=== PATIENT | female | born 1950 ===

== ENCOUNTER 2021-07-23 05:30 | Day surgery (SDC) | payer OTHER ==
[~2021-07-23 05:30] MED LIST: CRESTOR5 MG PO; LEVOTHYROXINE25 MCG PO; OMEGA PO; ZOLOFT25 MG PO
[2021-07-23] MEDS ORDERED: IBU600 MG PO (11:16)
== END 2021-07-23 17:45 | disposition home or self-care (01) ==
LOC: CIR.AMB 05:30
PROVIDERS: ATTEND Obstetrics & Gynecology Gynecology
DX: N81.12 Cystocele, lateral (principal); I95.9 Hypotension, unspecified; E03.9 Hypothyroidism, unspecified; K21.9 Gastro-esophageal reflux disease without esophagitis; E78.5 Hyperlipidemia, unspecified; F41.9 Anxiety disorder, unspecified; Z20.822 Contact with and (suspected) exposure to COVID-19